=== PATIENT | female | born 1940 | race Caucasian/White ===

== ENCOUNTER → 2016-07-08 | Outpatient (CLI) | payer MEDICARE ==
[2016-07-08 11:42] LABS: Basophils # (A) 0.1 k/uL (0-0.2); Basophils % (A) 1 %; CH 31.1; CHCM 32.4; Eosinophils # (A) 0.2 k/uL (0-0.7); Eosinophils % (A) 2 %; HCT 44.5 % (34.0-46.0); HDW 2.41; HGB 14.3 gm/dL (11.4-16.0); Luc # (Auto) 0.12; Luc % (Auto) 2; Lymphocytes # (A) 1.7 k/uL (1.0-4.8); Lymphocytes % (A) 23 %; MCHC 32.1 g/dL (31.0-37.0); MCV 96.6 fL (80.0-100.0); Mean Platelet Volume 6.7; Monocytes # (A) 0.3 k/uL (0-1.0); Monocytes % (A) 4 %; Neutrophils # (A) 5.1 k/uL (1.3-7.7); Neutrophils % (A) 68 %; RBC 4.61 m/uL (3.80-5.40); RDW 13.5 % (11.5-15.5); WBC 7.4 k/uL (3.8-10.6); WBC (Perox) 7.64
[2016-07-08 11:51] LABS: Appearance,Urine Clear (Clear); Bilirubin,Urine Negative (Negative); Glucose,Urine (UA) Negative (Negative); Ketones,Urine Negative (Negative); Leukocyte Esterase,Urine Trace (Negative); Nitrite,Urine Negative (Negative); PH, Urine 6.5 (5.0-8.0); Particle Count 793; Protein,Urine Negative (Negative); Specific Gravity,Urine 1.001 (1.001-1.035); UA Billing (MACRO vs. MICRO) MICRO; Urobilinogen,Urine <2.0 mg/dL (<2.0); WBC,Urine 1 /hpf (0-5)
[2016-07-08 11:53] LABS: AST 32 U/L (14-36); Alkaline Phosphatase 101 U/L (38-126); Anion Gap 11 mmol/L; Blood Urea Nitrogen 15 mg/dL (7-17); Calcium 9.6 mg/dL (8.4-10.2); Carbon Dioxide 28 mmol/L (22-30); Chloride 102 mmol/L (98-107); Glucose 111 mg/dL (74-99); Non-African American GFR(MDRD) >60 (>60 ml/min/1.73 sqM); Potassium 4.5 mmol/L (3.5-5.1); Sodium 141 mmol/L (137-145); Total Bilirubin 0.5 mg/dL (0.2-1.3); Total Protein 7.4 g/dL (6.3-8.2)
[2016-07-08 11:58] LABS: ALT 50 U/L (9-52)
[2016-07-08 12:00] LABS: Partial Thromboplastin Time 23.3 sec (22.0-30.0); Prothrombin Time 10.3 sec (9.0-12.0)
== END | disposition home or self-care (01) ==
LOC: LABPAT 11:03
PROVIDERS: ATTEND Orthopaedic Surgery
DX: Z01.810 Encounter for preprocedural cardiovascular examination (principal)
CPT/HCPCS: 80053; 81001; 85025; 85610; 85730

== ENCOUNTER → 2016-07-19 | Outpatient (CLI) | payer BC, MEDICARE | END | disposition home or self-care (01) | LOC: LABWHC1 11:01 | PROVIDERS: ATTEND Orthopaedic Surgery | DX: Z01.812 Encounter for preprocedural laboratory examination (principal) | CPT/HCPCS: 87070 ==

== ENCOUNTER 2016-07-23 07:42 | Inpatient (IN) | payer MEDICARE, OTHER ==
[2016-07-18 08:54] VITALS: BMI 25.4
[~2016-07-23 07:42] MED LIST: ACETAMINOPHEN TAB 500 MG TAB PO ONE; DEXAMETHASONE SOD PHOSPHATE 10 MG/ML 1 ML VIAL IV ONE; FAMOTIDINE 20 MG/2 ML VIAL IV PRN; HYDROmorphone 1 MG/ML 1 ML SYRINGE IVP PRN; LACTATED RINGERS 1,000 ML IV SCH; LIDOCAINE 1% 20 ML VIAL (10MG/ML) FOR IV START INTRADERMA PRN; MELOXICAM 7.5 MG TAB PO ONE; MIDAZOLAM 2 MG/2 ML VIAL IV PRN; ONDANSETRON 4 MG/2 ML VIAL IVP ONE; TRANEXAMIC ACID 1,000 MG in SODIUM CHLORIDE 0.9% 100 ML IVPB ONE; ceFAZolin 2 GM in SODIUM CHLORIDE 0.9% 100 ML IVPB ONE
[2016-07-23] MEDS ORDERED: ROPIVACAINE 1,100 MG, SODIUM CHLORIDE 0.9% 330 ML MISCELLANE PRN ×2 (09:00)
--- NOTE | 2016-07-23 09:02 | P.ONQ ---
Anesthesiology Proc Note - PNB - Peripheral Nerve Block Performed Right Adductor Canal Infusion Time Out Performed: Yes Indication: Acute Post-Operative Pain, Analgesia Specifically requested for management of pain by DrJazmine: Babatunde Vasques Sedation Type: Sedate with meaningful contact maintained Preparation: Sterile Prep Position: Supine Catheter Depth at Skin (cm): 8 Catheter: Indwelling Needle Types: On-Q Needle Size: 100mm (4") Needle Gauge: 20 Technique: Ultrasound Injectate: 0.5% Ropivacaine (see comment for volume) (20) Blood Aspirated: No Pain Paresthesia on Injection Noted: No Resistance on Injection: Normal Events: Uneventful and Well Tolerated
[2016-07-23] MEDS ORDERED: ROPIVACAINE 246.25 MG, EPINEPHrine 0.5 MG, KETOROLAC 30 MG, cloNIDine HCL/PF 80 MCG, WA... MISCELLANE ONE ×5 (09:05)
[2016-07-23] MEDS ORDERED: BISACODYL 10 MG SUPP RECTAL PRN (09:40)
[2016-07-23] MEDS ORDERED: NALOXONE 0.4 MG/ML 1 ML VIAL IV PRN (09:40)
[2016-07-23] MEDS ORDERED: HYDROcodone/APAP 5-325MG 1 EACH TAB PO PRN (09:40)
[2016-07-23] MEDS ORDERED: ONDANSETRON 4 MG/2 ML VIAL IVP PRN (09:40)
[2016-07-23] MEDS ORDERED: MAGNESIUM HYDROXIDE 2,400 MG/10 ML CUP PO PRN (09:40)
[2016-07-23] MEDS ORDERED: hydrOXYzine PAMOATE 25 MG CAP PO PRN (09:40)
[2016-07-23] MEDS ORDERED: DIAZEPAM 5 MG TAB PO PRN ×2 (09:40)
[2016-07-23] MEDS ORDERED: HYDROmorphone 1 MG/ML 1 ML SYRINGE IVP PRN ×3 (09:40)
[2016-07-23] MEDS ORDERED: SODIUM CHLORIDE 0.9% 100 ML BAG ONE (09:44)
[2016-07-23] MEDS ORDERED: TRANEXAMIC ACID 1,000 MG/10 ML VIAL ONE (09:44)
[2016-07-23] MEDS ORDERED: MIDAZOLAM 2 MG/2 ML VIAL ONE (09:44)
[2016-07-23] MEDS ORDERED: fentaNYL (PF) 50 MCG/ML 2 ML AMP ONE (09:44)
[2016-07-23] MEDS ORDERED: ceFAZolin 3,000 MG in SODIUM CHLORIDE 0.9% IRRIGATIO 3,000 ML IRRIGATION ONE (10:18)
[2016-07-23] MEDS ORDERED: LACTATED RINGERS 1,000 ML IV ONE (10:35)
--- NOTE | 2016-07-23 11:33 | P.OP ---
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 The articulation is ceramic on polyethylene. Anesthesia: spinal Surgeon: Babatunde Vasques Apparel Stock Checker #1: Sindhu Steinberg Estimated Blood Loss (ml): 50 Pathology: other (Bone and cartilage) Condition: stable Disposition: PACU Indications for Procedure: This is a 75-year-old female with a history of a unicompartmental knee replacement performed 15-20 years ago on her right knee. It is functioning well , although recently she began having more pain and instability in her right knee. After failure of conservative treatment we discussed the surgical and nonsurgical treatment options at length. Patient wishes to proceed with a revision total knee arthroplasty. Complications specific to this procedure were discussed at length, including but not limited to infection, bleeding, stiffness, and nerve injury. Patient is aware of all these complications and informed consent was obtained Operative Findings: The operative findings are consistent with a failed unicompartmental knee replacement of the right knee Description of Procedure: Patient was seen in the preoperative area consent was reviewed and operative site was marked with a skin marker. An adductor canal pain catheter was placed by anesthesia in the preoperative area. Patient was then brought to the operating room and given preoperative antibiotics intravenously. A spinal anesthetic was administered by the anesthesia department. A [place] catheter was then placed by the nursing staff. A tourniquet was placed on the upper thigh and the lower extremity was prepped and draped in usual sterile fashion. A gram of transexamic acid was given. A universal timeout was then performed which confirmed the patient's name, surgical site, ALLERGIES, and consent. The lower extremity was then exsanguinated and tourniquet was inflated to 250 mmHg. A standard and anterior midline approach to the knee was performed, with the prior scar being excised.. The skin and subcutaneous tissue was dissected down to the patellar tendon. A medial parapatellar arthrotomy was then performed. The knee was then extended, the patellar was everted, and the knee was again flexed. Anterior horn of the lateral meniscus was excised, and a release was performed to the posterior medial aspect of the knee. On gross visual inspection, there was significant polyethylene wear as well as significant cartilage damage in the lateral and patellofemoral compartments. There were multiple periarticular osteophytes which were then removed with a Ronguer. The femoral canal was then opened with the appropriate drill, and the intramedullary femoral cutting guide was then placed and set for 4 of valgus. The distal femoral cutting block was then pinned in place, and the distal femur was then cut around the unicompartmental femoral component. The cutting block was then removed and the remaining femoral component was then removed, with minimal bone loss. Next, the sizing guide was then placed and set for 3 external rotation based off of the epicondylar axis and Whitesides line. After the femur was sized, the appropriate 4-in-1 cutting block was then pinned in place. The anterior condyles were cut without notching. The posterior and chamfer cuts were performed while protecting the collateral ligaments. The cutting block was then removed. The femoral trial was then placed, and the adapter for the box cut was placed. The box reamer was utilized, followed by the box osteotome. Any remaining bone was then removed, and the femoral canal was plugged with autologous bone. Attention was then directed to the tibia. The remaining ACL was removed with a Ronguer, and the tibia was then gently subluxed forward with a large bent knee retractor. Any remaining menisci was excised. The posterior lateral corner was cauterized in order to cauterize the lateral geniculate artery. The extra medullary tibial cutting guide was then placed, set for the appropriate rotation , slope, and depth of resection. The proximal tibia cutting guide was then pinned in place. Proximal tibia was then cut and the tibial component was removed. The tibia was then sized. Next trials were then placed with the appropriate-sized insert. The knee was able to fully extend and flex to 130 and was stable throughout all range of motion. The knee was then extended, patella everted. Patella was then measured, and then using an osteotomy guide, the patella was cut at the appropriate level. The patella was then measured and drilled and the patella trial was then placed. The knee was then taken through range of motion with the patella trial and the patella tracked normally. The knee was then extended patella trial was then removed and the patella was everted. Knee was then flexed and lug holes were drilled through the femoral trial and the femoral trial was then removed. The tibial was then exposed, and the tibial broach guide was then pinned in place after it was set for the appropriate rotation to allow for the most coverage without overhang. The tibia was then reamed and broached. The cut surfaces of bone were then irrigated with pulsatile lavage. The posterior structures were injected with the ropivacaine solution. The knee was also irrigated with Irrisept solution. The components were then opened, the cement was mixed, and the components were then cemented in place. The cement was allowed to harden with the knee in full extension. While the cement was hardening, the remaining soft tissues were then injected with a ropivacaine solution, which consisted of 246.25 mg of ropivacaine, 0.5 mg of epinephrine, 30 mg of Toradol, 80 g of clonidine, and 48.45 mL of sterile water, for a total of 100 mL of fluid injected. After the cemented hardened. The tourniquet was released, and hemostasis was obtained. A second gram of transexamic acid was given. The knee was again irrigated. The knee was again taken through range of motion and found to be stable throughout all range of motion of 0-130 , and the patella tracked normally. The fascia was then closed with #2 strata fix suture. The subcutaneous tissue was closed with 3-0 Vicryl and 3-0 strata fix. Dermabond tape was used for the skin and placed with the knee in flexion. The patient was placed in a sterile dressing. Patient was then transferred to recovery room in stable condition. The psych assistant SERGIO Feliciano was required due the complexity surgery and the need for a skilled assistant professor of business. She assisted in positioning, draping , retraction, and closure of the wound.
--- NOTE | 2016-07-23 12:55 | XR ---
EXAMINATION TYPE: XR knee limited RT DATE OF EXAM: 07/23/2016 12:44 PM COMPARISON: NONE HISTORY: Post evaluation right knee prosthesis TECHNIQUE: 2 views right knee FINDINGS: Tibial and femoral components are placed. Soft tissue postsurgical changes are evident. No acute fractures are evident. IMPRESSION: 1. No acute fracture post right knee replacement
[2016-07-23] MEDS: SODIUM CHLORIDE 0.9% 1,000 ML IV SCH ×3 (13:00→13:16)
[2016-07-23] MEDS ORDERED: PANTOPRAZOLE 40 MG TABLET PO PRN (13:53)
[2016-07-23] MEDS ORDERED: FLUTICASONE 50MCG/SPRAY NASAL 16GM EA NOSTRIL PRN (13:53)
--- NOTE | 2016-07-23 16:58 | P.CONS ---
History of Present Illness - Reason for Consult Consult date: 07/23/16 Medical management Requesting physician: Babatunde Vasques - Chief Complaint Right knee osteoarthritis - History of Present Illness This is a 75-year-old female with past medical history noted below significant for severe osteoarthritis of the right knee that was admitted to the hospital for elective total right knee arthrosis plasty. Patient is postoperative day # 0. She tolerated the procedure well. No complications reported. I was asked to see her for medical management. Review of Systems Review of system: 14 points review of systems were obtained and were negative except to what were mentioned in the HPI. Past Medical History Past Medical History: Hyperlipidemia Additional Past Medical History / Comment(s): heart murmur, TIA about 15 yrs, History of Any Multi-Drug Resistant Organisms: None Reported Past Surgical History: Appendectomy, Orthopedic Surgery, Tonsillectomy Additional Past Surgical History / Comment(s): bilateral carpal tunnel release, knee, cataracts Past Anesthesia/Blood Transfusion Reactions: No Reported Reaction Past Psychological History: No Psychological Hx Reported Smoking Status: Never smoker Past Alcohol Use History: None Reported Past Drug Use History: None Reported - Past Family History Father Family Medical History: Myocardial Infarction ([place]) Medications and Allergies Home Medications Medication Instructions Recorded Confirmed Type Cholecalciferol [Vitamin D3] 1,000 unit PO DAILY 05/15/15 07/23/16 History Clopidogrel [Plavix] 75 mg PO DAILY 05/15/15 07/23/16 History FLUoxetine HCL [PROzac] 40 mg PO BID 05/15/15 07/23/16 History Fluticasone Nasal [place] [Flonase 2 spr EA NOSTRIL DAILY PRN 05/15/15 07/23/16 History Nasal [place]] Pantoprazole Sodium 40 mg PO BID PRN 05/15/15 07/23/16 History Atorvastatin [Lipitor] 40 mg PO HS 07/18/16 07/23/16 History Allergies Allergy/AdvReac Type Severity Reaction Status Date / Time Milk Containing Products Allergy Severe Diarrhea Verified 07/23/16 08:09 [Dairy] adhesive Allergy Unknown Red Verified 07/23/16 08:09 irritated skin banana Allergy Unknown Diarrhea Verified 07/23/16 08:09 Beef Containing Products Allergy Unknown Diarrhea Verified 07/23/16 08:09 [Beef] Physical Exam Vitals: Vital Signs Temp Pulse Resp BP Pulse Ox 07/23/16 15:15 94 107/71 07/23/16 15:00 92 117/70 07/23/16 14:45 96 115/65 07/23/16 14:30 97 126/78 07/23/16 14:15 93 123/97 07/23/16 14:00 75 129/76 07/23/16 13:45 81 120/67 07/23/16 13:30 97.7 F 81 16 121/69 100 07/23/16 12:50 79 18 102/55 96 07/23/16 12:35 80 18 100/60 96 07/23/16 12:20 78 18 101/55 96 07/23/16 12:05 76 18 122/56 95 07/23/16 11:50 97.5 F L 90 18 121/57 98 07/23/16 08:07 97.0 F L 83 18 132/85 95 Intake and Output 07/23/16 07/23/16 07/23/16 06:59 14:59 22:59 Intake Total 3026 Output Total 1100 Balance 1926 Intake: IV 3026 Output: Urine 1050 Uretheral ([place]) 500 Estimated Blood Loss 50 Other: Voiding Method Indwelling Catheter Weight 61.235 kg Patient Weight 07/24/16 06:59 Weight 61.235 kg General: The patient is awake and alert, in no distress Eye: there is normal conjunctiva bilaterally. Neck: The neck is supple, there is no JVD. Cardiovascular: Normal S1-S2, no S3-S4, no murmurs. Respiratory: Lungs clear to auscultation bilaterally Gastrointestinal: Abdomen is soft, nontender Musculoskeletal: There is no pedal edema. Neurological:. Speech is normal. Skin: Skin is warm and dry Assessment and Plan Plan: 1. Postoperative day #0 status post total right knee arthroplasty 2. DVT prophylaxis I will order subcu heparin 3. Mixed hyperlipidemia maintained on Lipitor 4. Major depressive disorder Today, I reviewed her medication list and lab work results. Continue current regimen. Thank you very much for the consultation. I will continue to follow up on the patient closely.
[2016-07-23] MEDS: ceFAZolin 2 GM in SODIUM CHLORIDE 0.9% 100 ML IVPB SCH (18:35)
[2016-07-23] MEDS: SENNOSIDES-DOCUSATE SODIUM 1 EACH TAB PO SCH (20:25)
[2016-07-23] MEDS: ATORVASTATIN 40 MG TAB PO SCH (20:25)
[2016-07-23] MEDS: FLUoxetine HCL 20 MG CAP PO SCH (20:25)
[2016-07-23] MEDS: HEPARIN SODIUM,PORCINE 5,000 UNIT/ML 1 ML VIAL SQ SCH (21:22)
[2016-07-24] MEDS: ceFAZolin 2 GM in SODIUM CHLORIDE 0.9% 100 ML IVPB SCH (00:49)
[2016-07-24 07:40] LABS: ALT 28 U/L (9-52); AST 25 U/L (14-36); Alkaline Phosphatase 73 U/L (38-126); Anion Gap 7 mmol/L; Blood Urea Nitrogen 18 mg/dL (7-17); Calcium 8.4 mg/dL (8.4-10.2); Carbon Dioxide 27 mmol/L (22-30); Chloride 104 mmol/L (98-107); Glucose 84 mg/dL (74-99); Non-African American GFR(MDRD) >60 (>60 ml/min/1.73 sqM); Potassium 3.5 mmol/L (3.5-5.1); Sodium 138 mmol/L (137-145); Total Bilirubin 0.6 mg/dL (0.2-1.3); Total Protein 5.3 g/dL (6.3-8.2)
[2016-07-24 07:41] LABS: Basophils % (A) 0 %; CH 30.8; CHCM 32.5; Eosinophils % (A) 0 %; HCT 32.7 % (34.0-46.0); HDW 2.39; Luc # (Auto) 0.14; Luc % (Auto) 1; Lymphocytes # (A) 1.5 k/uL (1.0-4.8); Lymphocytes % (A) 14 %; MCH 31.1 pg (25.0-35.0); MCHC 32.6 g/dL (31.0-37.0); MCV 95.3 fL (80.0-100.0); Mean Platelet Volume 8.1; Monocytes # (A) 0.7 k/uL (0-1.0); Monocytes % (A) 6 %; Neutrophils # (A) 8.3 k/uL (1.3-7.7); Neutrophils % (A) 78 %; RBC 3.43 m/uL (3.80-5.40); RDW 13.5 % (11.5-15.5); WBC 10.7 k/uL (3.8-10.6); WBC (Perox) 10.56
[2016-07-24 07:45] LABS: HGB 10.7 gm/dL (11.4-16.0)
--- NOTE | 2016-07-24 08:25 | P.PN ---
Subjective Principal diagnosis: Status post revision right total knee arthroplasty This is a pleasant 75-year-old female who is status post right total knee revision. Today is postoperative day #1. The patient is seen at bedside with Dr. Babautnde Vasques. Her pain is well-controlled. She has been up with physical therapy. She has no new complaints at this time. Objective - Vital Signs Vital signs: Vital Signs Temp 97.1 F L 07/24/16 07:00 Pulse 76 07/24/16 07:00 Resp 16 07/24/16 07:00 BP 112/60 07/24/16 07:00 Pulse Ox 96 07/24/16 07:00 Intake & Output 07/23/16 07/24/16 07/24/16 18:59 06:59 18:59 Intake Total 3446 540 Output Total 1100 1000 Balance 2346 -460 Weight 61.235 kg Intake: IV 3086 540 Sodium Chloride 0.9% 1, 60 540 000 ml @ 60 mls/hr IV . [id number] JACOBO Rx#:[id number] Oral 360 Output: Urine 1050 1000 Uretheral ([place]) 500 1000 Estimated Blood Loss 50 Other: Voiding Method Indwelling Catheter Indwelling Catheter - Exam The patient does not appear in acute distress. Alert and orientated 3. Dressing is clean dry and intact. Incision appears fine with no erythema or active drainage. Calf is soft and nontender. Good foot and ankle motion without difficulty. Sensation and circulatory status is intact. - Labs CBC & Chem 7: 07/24/16 06:49 07/24/16 06:49 Labs: Abnormal Lab Results - Last 24 Hours (Table) 07/24/16 07/24/16 Range/Units 06:49 06:49 WBC 10.7 H (3.8-10.6) k/uL RBC 3.43 L (3.80-5.40) m/uL Hgb 10.7 L D (11.4-16.0) gm/dL Hct 32.7 L (34.0-46.0) % Neutrophils # 8.3 H (1.3-7.7) k/uL BUN 18 H (7-17) mg/dL Total Protein 5.3 L (6.3-8.2) g/dL Albumin 3.0 L (3.5-5.0) g/dL Assessment and Plan (1) Status post revision of total replacement of right knee Status: Acute Plan: 1. Continue with routine postoperative care. 2. Anticoagulation as directed by medicine as the patient was on Plavix preoperatively 3. Physical therapy and CPM today. 4. Appreciate input from medicine. 5. Anticipate discharge to home with home care likely tomorrow.
--- NOTE | 2016-07-24 09:20 | P.PN ---
Progress Note - Text The patient is status post right adductor canal catheter placement. The catheter was placed for postoperative pain control, status post total right arthroplasty. Ropivacaine 0.2% is infusing at 8 mLs per hour. The patient has no complaints of right lower extremity numbness or weakness. Patient's VAS score is 3 -10. Assessment: Patient's adductor canal catheter is in place and working appropriately. Plan: continue infusion and adjust it as needed.
[2016-07-24] MEDS: CHOLECALCIFEROL 1,000 UNIT TAB PO SCH (09:32)
[2016-07-24] MEDS: FLUoxetine HCL 20 MG CAP PO SCH ×2 (09:32→20:10)
[2016-07-24] MEDS: CLOPIDOGREL 75 MG TAB PO SCH (09:32)
[2016-07-24] MEDS: HEPARIN SODIUM,PORCINE 5,000 UNIT/ML 1 ML VIAL SQ SCH (09:33)
[2016-07-24] MEDS: MELOXICAM 7.5 MG TAB PO SCH (09:34)
[2016-07-24] MEDS: HYDROcodone/APAP 5-325MG 1 EACH TAB PO PRN ×3 (13:33→23:58)
[2016-07-24] MEDS: RIVAROXABAN 10 MG TAB PO SCH (16:24)
--- NOTE | 2016-07-24 16:45 | P.PN ---
Subjective Patient is doing well today. She is more alert. Her pain is well controlled. Objective - Vital Signs Vital signs: Vital Signs Temp 99.3 F 07/24/16 15:00 Pulse 84 07/24/16 15:00 Resp 16 07/24/16 15:00 BP 103/63 07/24/16 15:00 Pulse Ox 94 L 07/24/16 15:00 Intake & Output 07/23/16 07/24/16 07/24/16 18:59 06:59 18:59 Intake Total 3446 540 720 Output Total 1100 1000 1400 Balance 2346 -460 -680 Weight 61.235 kg Intake: IV 3086 540 Sodium Chloride 0.9% 1, 60 540 000 ml @ 60 mls/hr IV . [id number] JACOBO Rx#:[id number] Oral 360 720 Output: Urine 1050 1000 1400 Uretheral ([place]) 500 1000 1100 Estimated Blood Loss 50 Other: Voiding Method Indwelling Catheter Indwelling Catheter Toilet # Bowel Movements 1 - Exam General: The patient is awake and alert, in no distress Eye: there is normal conjunctiva bilaterally. Neck: The neck is supple, there is no JVD. Cardiovascular: Normal S1-S2, no S3-S4, no murmurs. Respiratory: Lungs clear to auscultation bilaterally Gastrointestinal: Abdomen is soft, nontender Musculoskeletal: There is no pedal edema. Neurological:. Speech is normal. Skin: Skin is warm and dry - Labs CBC & Chem 7: 07/24/16 06:49 07/24/16 06:49 Labs: Abnormal Lab Results - Last 24 Hours (Table) 07/24/16 07/24/16 Range/Units 06:49 06:49 WBC 10.7 H (3.8-10.6) k/uL RBC 3.43 L (3.80-5.40) m/uL Hgb 10.7 L D (11.4-16.0) gm/dL Hct 32.7 L (34.0-46.0) % Neutrophils # 8.3 H (1.3-7.7) k/uL BUN 18 H (7-17) mg/dL Total Protein 5.3 L (6.3-8.2) g/dL Albumin 3.0 L (3.5-5.0) g/dL Assessment and Plan Plan: 1. Postoperative day #1 status post total right knee arthroplasty 2. DVT prophylaxis: I recommend to use Rivaroxaban 10 mg daily for 12 days postoperatively 3. Mixed hyperlipidemia maintained on Lipitor 4. Major depressive disorder 5. History of TIAs in the past maintained on Plavix daily Today, I reviewed her medication list and lab work results. Continue current regimen. Thank you very much for the consultation. I will continue to follow up on the patient closely.
[2016-07-24] MEDS: SODIUM CHLORIDE 0.9% 1,000 ML IV SCH (19:15)
[2016-07-24] MEDS: ATORVASTATIN 40 MG TAB PO SCH (20:10)
[2016-07-24] MEDS: SENNOSIDES-DOCUSATE SODIUM 1 EACH TAB PO SCH (20:11)
[2016-07-25] MEDS: HYDROcodone/APAP 5-325MG 1 EACH TAB PO PRN ×2 (05:51→11:50)
[2016-07-25 07:09] LABS: ALT 25 U/L (9-52); AST 21 U/L (14-36); Alkaline Phosphatase 71 U/L (38-126); Anion Gap 8 mmol/L; Blood Urea Nitrogen 14 mg/dL (7-17); Calcium 8.5 mg/dL (8.4-10.2); Carbon Dioxide 27 mmol/L (22-30); Chloride 102 mmol/L (98-107); Glucose 96 mg/dL (74-99); Non-African American GFR(MDRD) >60 (>60 ml/min/1.73 sqM); Potassium 3.7 mmol/L (3.5-5.1); Sodium 137 mmol/L (137-145); Total Bilirubin 0.8 mg/dL (0.2-1.3); Total Protein 5.3 g/dL (6.3-8.2)
--- NOTE | 2016-07-25 08:22 | P.DS ---
Providers Date of admission: 07/23/16 07:42 Expected date of discharge: 07/25/16 Attending physician: Babatunde Vasques Consults: 07/23/16 09:40 Consult Physician Routine Consulting Provider: Olya Curiel Consult Reason/Comments: medical management Do you want consulting provider notified?: Yes Primary care physician: Abeba Mon - Discharge Diagnosis(es) (1) Osteoarthritis of right knee Current Visit: Yes Status: Acute (2) Status post revision of total replacement of right knee Current Visit: Yes Status: Acute Hospital Course: This is a pleasant 75-year-old female last seen in our office with complaints of right knee pain. Patient has known history of a partial knee replacement 20 years ago. After discussion and consideration, patient elected to proceed with a revision total knee arthroplasty of the right knee. The patient was seen preoperatively and medically cleared for surgery by Dr. Mon. The patient was admitted to [facility] and underwent right revision total knee arthroplasty on 07/23/[address] Babatunde Vasques. The procedure was performed without complications or sequelae. The patient has done well postoperatively. The patient was seen and evaluated at bedside today and denies any new complaints. Pain is reasonably controlled. Dressing is clean dry and intact. Incision looks fine with no erythema or active drainage. Calf is soft and nontender. The patient has full foot and ankle motion without difficulty. Patient's right lower extremity is neurovascular intact. Patient is orthopedically stable for discharge to home today. Pertinent Studies: Laboratory Tests 07/24/16 06:49 WBC 10.7 H RBC 3.43 L Hgb 10.7 L D Hct 32.7 L Patient Condition at Discharge: Stable Plan - Discharge Summary New Discharge Prescriptions: Hydrocodone/Acetaminophen [[place] 5-325] 1 - 2 each PO Q6HR PRN #90 tab PRN Reason: Pain Sennosides-Docusate Sodium [Senokot-S] 2 tab PO DAILY #60 tablet Discharge Medication List Cholecalciferol [Vitamin D3] 1,000 unit PO DAILY 05/15/15 [History] Clopidogrel [Plavix] 75 mg PO DAILY 05/15/15 [History] FLUoxetine HCL [PROzac] 40 mg PO BID 05/15/15 [History] Fluticasone Nasal [place] [Flonase Nasal [place]] 2 spr EA NOSTRIL DAILY PRN [History] Pantoprazole Sodium 40 mg PO BID PRN 05/15/15 [History] Atorvastatin [Lipitor] 40 mg PO HS 07/18/16 [History] Hydrocodone/Acetaminophen [[place] 5-325] 1 - 2 each PO Q6HR PRN #90 tab 07/24/16 [Rx] Sennosides-Docusate Sodium [Senokot-S] 2 tab PO DAILY #60 tablet 07/24/16 [Rx] Follow up Appointment(s)/Referral(s): Babatunde Vasques DO [Doctor of Osteopathic Medicine] - 2 Weeks Ambulatory/Diagnostic Orders: Continuous Passive Motion (CPM) Machine [DME.AMB1] Location: Determined By Patient Activity/Diet/Wound Care/Special Instructions: Home Care - [facility] - [phone] Equipment - Walker/CPM - [facility] - [phone] - walker will be delivered to room prior to discharge; Call [facility] when you get home for delivery of CPM Pick script for Xarelto up from [facility] at time of discharge Weightbearing as tolerated with a walker CPM daily Daily dressing changes, keep incision clean and dry Anticoagulation per medicine [facility] with questions or concerns [phone] Discharge Disposition: HOME WITH HOME HEALTH SERVICES
[2016-07-25] MEDS: CHOLECALCIFEROL 1,000 UNIT TAB PO SCH (09:23)
[2016-07-25] MEDS: MELOXICAM 7.5 MG TAB PO SCH (09:23)
[2016-07-25] MEDS: CLOPIDOGREL 75 MG TAB PO SCH (09:23)
[2016-07-25] MEDS: RIVAROXABAN 10 MG TAB PO SCH (09:23)
[2016-07-25] MEDS: FLUoxetine HCL 20 MG CAP PO SCH (09:23)
[2016-07-25 10:01] VITALS: BP 110/56; PULSE 77; RESP 14; TEMP 98.9
--- NOTE | 2016-07-25 11:02 | P.PN ---
Progress Note - Text 0717. Anesthesia POD2. Patient is status post right TKR under spinal anesthesia with a right adductor canal catheter placed for postoperative pain relief. 0.2% ropivacaine continues to infuse at 8 mL per hour and patient's VAS is 4, 7. Catheter function seems to be appropriate dressing is intact and dry.
[2016-07-25] MEDS: SODIUM CHLORIDE 0.9% 1,000 ML IV SCH (11:48)
--- NOTE | 2016-07-25 12:35 | P.PN ---
Subjective Patient is looking forward to go home today Objective - Vital Signs Vital signs: Vital Signs Temp 98.9 F 07/25/16 07:00 Pulse 77 07/25/16 08:00 Resp 14 07/25/16 08:00 BP 110/56 07/25/16 07:00 Pulse Ox 92 L 07/25/16 07:00 Intake & Output 07/24/16 07/25/16 07/25/16 18:59 06:59 18:59 Intake Total 960 100 240 Output Total 1400 300 Balance -440 100 -60 Weight 61.235 kg Intake: Oral 960 100 240 Output: Urine 1400 300 Uretheral ([place]) 1100 Other: Voiding Method Toilet Toilet Toilet # Voids 2 2 # Bowel Movements 1 1 - Exam General: The patient is awake and alert, in no distress Eye: there is normal conjunctiva bilaterally. Neck: The neck is supple, there is no JVD. Cardiovascular: Normal S1-S2, no S3-S4, no murmurs. Respiratory: Lungs clear to auscultation bilaterally Gastrointestinal: Abdomen is soft, nontender Musculoskeletal: There is no pedal edema. Neurological:. Speech is normal. Skin: Skin is warm and dry - Labs CBC & Chem 7: 07/24/16 06:49 07/25/16 06:21 Labs: Abnormal Lab Results - Last 24 Hours (Table) 07/25/16 Range/Units 06:21 Total Protein 5.3 L (6.3-8.2) g/dL Albumin 3.0 L (3.5-5.0) g/dL Assessment and Plan Plan: 1. Postoperative day #2 status post total right knee arthroplasty 2. DVT prophylaxis: I recommend to use Rivaroxaban 10 mg daily for 12 days postoperatively 3. Mixed hyperlipidemia maintained on Lipitor 4. Major depressive disorder 5. History of TIAs in the past maintained on Plavix daily Patient is medically cleared to be discharged home. Please refer to the medication reconciliation form for her medication list.
== END 2016-07-25 13:15 | disposition home health service (06) | DRG 468 ==
LOC: 2ORMAIN 07:42 → 3SUR 11:46
PROVIDERS: ADMIT Orthopaedic Surgery; ATTEND Orthopaedic Surgery
PROC: 0SUC09C Supplement Right Knee Joint with Liner, Patellar Surface, Open Approach (ICD-10-PCS; principal; 2016-07-23 09:40)
PROC: 0SPC0JZ Removal of Synthetic Substitute from Right Knee Joint, Open Approach (ICD-10-PCS; principal; 2016-07-23 09:40)
PROC: 0SPC09Z Removal of Liner from Right Knee Joint, Open Approach (ICD-10-PCS; principal; 2016-07-23 09:40)
PROC: 0SRC0J9 Replacement of Right Knee Joint with Synthetic Substitute, Cemented, Open Approach (ICD-10-PCS; principal; 2016-07-23 09:40)
DX: T84.89XA Other specified complication of internal orthopedic prosthetic devices, implants and grafts, initial encounter (principal); F32.9 Major depressive disorder, single episode, unspecified; Y79.2 Prosthetic and other implants, materials and accessory orthopedic devices associated with adverse incidents; M17.11 Unilateral primary osteoarthritis, right knee; Z79.899 Other long term (current) drug therapy; Z91.040 Latex allergy status; Z86.73 Personal history of transient ischemic attack (TIA), and cerebral infarction without residual deficits; Z79.02 Long term (current) use of antithrombotics/antiplatelets; Z82.49 Family history of ischemic heart disease and other diseases of the circulatory system; E78.2 Mixed hyperlipidemia
CPT/HCPCS: 80053; 85025; 88300

== ENCOUNTER → 2016-09-24 | Outpatient (CLI) | payer MEDICARE, OTHER ==
--- NOTE | 2016-09-24 14:29 | MM ---
Reason for exam: additional evaluation requested from prior study. Last mammogram was performed 6 months ago. History: Patient is postmenopausal. Excisional biopsy of the left breast, 1996. Physical Findings: Nurse did not find any significant physical abnormalities on exam. MG 3D Diag Mammo W/Cad LT CC and MLO view(s) were taken of the left breast. Prior study comparison: March 19, 2016, left breast US breast limited LT. March 19, 2016, left breast MG 3d work up w/cad LT. March 11, 2016, bilateral MG 3d screening mammo w/cad. October 27, 2013, bilateral MG screening mammo w CAD. February 26, 2012, bilateral digital screening mammo w/CAD. The breast tissue is heterogeneously dense. This may lower the sensitivity of mammography. No significant new findings when compared with previous films. These results were verbally communicated with the patient and result sheet given to the patient on 09/24/16. ASSESSMENT: Incomplete: need additional imaging evaluation, BI-RAD 0 RECOMMENDATION: Ultrasound of the left breast. (12:00 as a 6 month follow up)
--- NOTE | 2016-09-24 14:32 | USB ---
Reason for exam: additional evaluation requested from abnormal screening. History: Patient is postmenopausal. US Breast Limited LT Left breast ultrasound indicates a 0.3 x 0.23 x 0.10 cm too small to characterize lesion at 12 o'clock, smaller, compatible with a benign etiology, a 0.6 x 0.5 x 0.3 cm mixed lesion at 1 o'clock, possible lymph node for which a 6 month follow up is recommended, and a 0.3 x 0.2 x 0.4 cm too small to characterize lesion at axilla tail for which a 6 month follow up is recommended. These results were verbally communicated with the patient and result sheet given to the patient on 09/24/16. ASSESSMENT: Probably benign, BI-RAD 3 RECOMMENDATION: Follow-up diagnostic mammogram of both breasts in 6 months. (for annual exam) Ultrasound of the left breast in 6 months. (upper outer quadrant)
== END | disposition home or self-care (01) ==
LOC: RADMAMWWP 10:38
PROVIDERS: ATTEND Family Medicine
DX: R92.2 Inconclusive mammogram (principal)
CPT/HCPCS: 76642; G0206; G0279

== ENCOUNTER → 2017-04-09 | Outpatient (CLI) | payer MEDICARE, OTHER ==
--- NOTE | 2017-04-09 10:43 | MM ---
Reason for exam: follow-up at short interval from prior study. Last mammogram was performed 6 months ago. History: Patient is postmenopausal. Excisional biopsy of the left breast, 1996. Physical Findings: Nurse Summary: 0.5 x 1cm nodule in the right breast at 8 o'clock (nurse ts). MG 3D Diag Mammo W/Cad CHELSIE Bilateral CC and MLO view(s) were taken. Prior study comparison: September 24, 2016, left breast MG 3d diag mammo w/cad LT. March 19, 2016, left breast MG 3d work up w/cad LT. The breast tissue is heterogeneously dense. This may lower the sensitivity of mammography. Finding: There are typically benign calcifications in both breasts. No suspicious abnormality. No significant changes in finding since September 24, 2016 and March 19, 2016. These results were verbally communicated with the patient and result sheet given to the patient on 04/09/17. ASSESSMENT: Benign, BI-RAD 2 RECOMMENDATION: Routine screening mammogram of both breasts in 1 year.
--- NOTE | 2017-04-09 10:45 | USB ---
Reason for exam: follow-up at short interval from prior study. History: Patient is postmenopausal. Excisional biopsy of the left breast, 1996. US Breast Limited BILAT Left breast ultrasound includes all four quadrants, the retroareolar region and axilla. Finding demonstrates a 0.4 x 0.2 x 0.3cm oval, hypoechoic lesion at 12 o'clock. Right breast ultrasound demonstrates a 0.2 x 0.2 x 0.3cm oval, hypoechoic lesion at 8 o'clock, questionable calcifications nearby, appears cystic. These results were verbally communicated with the patient and result sheet given to the patient on 04/09/17. ASSESSMENT: Probably benign, BI-RAD 3 RECOMMENDATION: Ultrasound of the left breast in 6 months.
== END | disposition home or self-care (01) ==
LOC: RADMAMWWP 08:38
PROVIDERS: ATTEND Family Medicine
DX: R92.8 Other abnormal and inconclusive findings on diagnostic imaging of breast (principal)
CPT/HCPCS: 76642; G0204; G0279

== ENCOUNTER → 2017-10-14 | Outpatient (CLI) | payer MEDICARE, OTHER ==
--- NOTE | 2017-10-14 10:58 | USB ---
Reason for exam: follow-up at short interval from prior study. History: Patient is postmenopausal. Excisional biopsy of the left breast, 1996. Physical Findings: Nurse Summary: left breast nipple inverted "always" per patient, all soft, nodular, movable bilateral tissue (nurse ts). US Breast LT Left complete breast ultrasound includes all four quadrants, the retroareolar region and axilla. Finding demonstrates a 4 x 2 x 3mm oval, hypoechoic lesion at 12 o'clock, unchanged from previous. These results were verbally communicated with the patient and result sheet given to the patient on 10/14/17. ASSESSMENT: Benign, BI-RAD 2 RECOMMENDATION: Follow-up diagnostic mammogram of both breasts in 6 months. Back on schedule. Ultrasound of the left breast in 6 months.
== END | disposition home or self-care (01) ==
LOC: RADUSWWP 09:27
PROVIDERS: ATTEND Family Medicine
DX: R92.8 Other abnormal and inconclusive findings on diagnostic imaging of breast (principal)

== ENCOUNTER → 2018-04-29 | Outpatient (CLI) | payer MEDICARE, OTHER ==
--- NOTE | 2018-04-29 12:03 | MM ---
Reason for exam: additional evaluation requested from prior study. Last mammogram was performed 1 year and 1 month ago. History: Patient is postmenopausal. Excisional biopsy of the left breast, 1996. Physical Findings: Nurse did not find any significant physical abnormalities on exam. MG 3D Diag Mammo W/Cad CHELSIE Bilateral CC and MLO view(s) were taken. Prior study comparison: April 09, 2017, bilateral MG 3d diag mammo w/cad CHELSIE. September 24, 2016, left breast MG 3d diag mammo w/cad LT. The breast tissue is heterogeneously dense. This may lower the sensitivity of mammography. No significant new findings when compared with previous films. These results were verbally communicated with the patient and result sheet given to the patient on 04/29/18. ASSESSMENT: Benign, BI-RAD 2 RECOMMENDATION: Routine screening mammogram of both breasts in 1 year.
--- NOTE | 2018-04-29 12:04 | USB ---
Reason for exam: additional evaluation requested from prior study. History: Patient is postmenopausal. Excisional biopsy of the left breast, 1996. US Breast LT Left complete breast ultrasound includes all four quadrants, the retroareolar region and axilla. Finding demonstrates a 0.4 x 0.2 x 0.4cm hypoechoic lesion at 12 o'clock, stable duct ectasia. These results were verbally communicated with the patient and result sheet given to the patient on 04/29/18. ASSESSMENT: Benign, BI-RAD 2 RECOMMENDATION: Routine screening mammogram of both breasts in 1 year.
== END | disposition home or self-care (01) ==
LOC: RADMAMWWP 10:46
PROVIDERS: ATTEND Family Medicine
DX: R92.2 Inconclusive mammogram (principal)
CPT/HCPCS: 77066; 76641; G0279; 77062

== ENCOUNTER → 2018-10-15 | Outpatient (CLI) | payer MEDICARE, OTHER ==
--- NOTE | 2018-10-15 16:46 | BD ---
EXAMINATION TYPE: Axial Bone Density DATE OF EXAM: 10/15/2018 COMPARISON: 10.27.2013 CLINICAL HISTORY: 78 YR OLD FEMALE...ICD-10 CODE: M89.9 DISORDER OF BONE Height: 59.3 Weight: 154 FRAX RISK QUESTIONS: History of Fracture in Adulthood: YES RISK FACTORS HISTORY OF: HX OF RT ARM FRACTURE LAST YR AT 77 YRS OLD Diet low in dairy products/other sources of calcium: LACTOSE INTOLERANT Postmenopausal woman: YES AT AGE 54 MEDICATIONS: Additional Medications: PROZAC, STATIN FOR CHOLESTEROL, Additional History: NOTHING ADDITIONAL TO NOTE EXAM MEASUREMENTS: Bone mineral densitometry was performed using the [employer]der[employer] System. Bone mineral density as measured about the Lumbar spine is: ----- L1-L4(G/cm2): 0.946 T Score Values are as follows: ----- L1: -1.7 ----- L2: -2.5 ----- L3: -1.6 ----- L4: -2.0 ----- L1-L4: -2.0 Bone mineral density has: Increased 0.1% since study of: 10.27.2013 Bone mineral density about the R hip (g/cm2): 0.878 Bone mineral density about the L hip (g/cm2): 0.869 T Score values are as follows: -----R Neck: -1.8 -----L Neck: -2.2 -----R Total: - 1.0 -----L Total: -1.1 Bone mineral density has: Decreased -4.7% since study of: 10.27.2013 FRAX%s: THERE IS A 21.3% CHANCE FOR A MAJOR OSTEOPOROTIC FX AND A 5.6 % FOR HIP....PROBABILITY FOR FX IN 10 YRS TIME IMPRESSION: Osteopenia (T Score between -2.5 and -1). There is slightly increased risk of fracture and the patient may be considered for treatment. Re-Screen 2-5 years. NOTE: T-SCORE=SD OF THE YOUNG ADULT MEAN.
== END | disposition home or self-care (01) ==
LOC: RADBDWWP 14:59
PROVIDERS: ATTEND Family Medicine
DX: M85.88 Other specified disorders of bone density and structure, other site (principal); M85.852 Other specified disorders of bone density and structure, left thigh
CPT/HCPCS: 77080

== ENCOUNTER 2019-04-27 08:28 | Day surgery (SDC) | payer MEDICARE, OTHER ==
[2019-04-23 11:29] VITALS: BMI 28.3
[~2019-04-27 08:28] MED LIST changes: -ACETAMINOPHEN TAB 500 MG TAB PO ONE; -FAMOTIDINE 20 MG/2 ML VIAL IV PRN; -HYDROmorphone 1 MG/ML 1 ML SYRINGE IVP PRN; -MELOXICAM 7.5 MG TAB PO ONE; -MIDAZOLAM 2 MG/2 ML VIAL IV PRN; -ONDANSETRON 4 MG/2 ML VIAL IVP ONE; -TRANEXAMIC ACID 1,000 MG in SODIUM CHLORIDE 0.9% 100 ML IVPB ONE; -ceFAZolin 2 GM in SODIUM CHLORIDE 0.9% 100 ML IVPB ONE
[2019-04-27 09:18] VITALS: RESP 16; TEMP 97.5
[2019-04-27] MEDS ORDERED: PROPOFOL 10 MG/ML 20 ML VIAL IV ONE (09:21)
--- NOTE | 2019-04-27 10:13 | P.PCN ---
Date of Procedure: 04/27/19 Description of Procedure: BRIEF HISTORY: Patient is a 78-year-old pleasant female scheduled for an elective colonoscopy, for follow-up of a history of colon polyps. Patient reports last colonoscopy approximately 6 years ago with polyps removed at that time. No change in bowel habits, blood per rectum or abdominal pain. No family history of colon cancer. PROCEDURE PERFORMED: Colonoscopy. PREOPERATIVE DIAGNOSIS: Personal history of colon polyps, last colonoscopy 6 years ago. ESTIMATED BLOOD LOSS: Minimal. IV sedation per Anesthesia. PROCEDURE: After informed consent was obtained, the patient, was brought into the endoscopy unit. IV sedation was administered by Anesthesia under continuous monitoring. Digital rectal examination was normal. Initially the Olympus CF-190 flexible video colonoscope was then inserted in the rectum however due to a somewhat fixed colon this was exchanged for a pediatric scope which was then inserted into the rectum, gradually advanced into the cecum without any difficulty. Careful examination was performed as the scope was gradually being withdrawn. Ileocecal valve and the appendiceal orifice were visualized and appeared normal. Prep was fair with a large amount of liquid stool adherent to the schmitz of the colon which was copiously lavaged and suctioned. Mucosa of the cecum, ascending colon, transverse colon, descending colon, sigmoid colon, and rectum appeared normal. Multiple small mouth diverticula noted in the sigmoid colon. Ret roflexion was performed in the rectum and no lesions were seen. The patient tolerated the procedure well. IMPRESSION: Mild sigmoid diverticulosis. Fair prep (copiously lavaged and suctioned). RECOMMENDATIONS: Findings of this examination were discussed with the patient and her family. Okay to resume diet. Okay to resume anticoagulation therapy and medications. Given fair prep complete visualization of the mucosa could not be achieved healed with copious lavage and suctioning recommendation is for repeat colonoscopy in one year with 2 day prep.
[2019-04-27 11:05] VITALS: BP 126/76; PULSE 68
== END 2019-04-27 11:06 | disposition home or self-care (01) ==
LOC: ORWHC2ENDO 08:28
PROVIDERS: ATTEND Internal Medicine
DX: K57.30 Diverticulosis of large intestine without perforation or abscess without bleeding (principal); Z86.010 Personal history of colon polyps; E78.5 Hyperlipidemia, unspecified; F32.9 Major depressive disorder, single episode, unspecified; Z91.011 Allergy to milk products; Z91.048 Other nonmedicinal substance allergy status; Z91.018 Allergy to other foods; Z79.899 Other long term (current) drug therapy; Z79.02 Long term (current) use of antithrombotics/antiplatelets; Z90.49 Acquired absence of other specified parts of digestive tract; Z98.890 Other specified postprocedural states; Z98.49 Cataract extraction status, unspecified eye; Z90.89 Acquired absence of other organs; Z86.73 Personal history of transient ischemic attack (TIA), and cerebral infarction without residual deficits; Z96.653 Presence of artificial knee joint, bilateral
CPT/HCPCS: 45378; J2704

== ENCOUNTER → 2019-05-20 | Outpatient (CLI) | payer MEDICARE, OTHER ==
--- NOTE | 2019-05-24 09:24 | MM ---
Reason for exam: screening (asymptomatic). Last mammogram was performed 1 year and 1 month ago. History: Patient is postmenopausal. Excisional biopsy of the left breast, 1996. Took hormonal contraceptives for 10 years. Physical Findings: A clinical breast exam by your physician is recommended on an annual basis and results should be correlated with mammographic findings. MG 3D Screening Mammo W/Cad Bilateral CC and MLO view(s) were taken. Prior study comparison: April 29, 2018, bilateral MG 3d diag mammo w/cad CHELSIE. April 09, 2017, bilateral MG 3d diag mammo w/cad CHELSIE. The breast tissue is heterogeneously dense. This may lower the sensitivity of mammography. There is chronic nodularity in the left breast. Benign fat necrosis and oil cyst calcifications. No significant changes when compared with prior studies. ASSESSMENT: Benign, BI-RAD 2 RECOMMENDATION: Routine screening mammogram of both breasts in 1 year.
== END | disposition home or self-care (01) ==
LOC: RADMAMWWP 14:05
PROVIDERS: ATTEND Family Medicine
DX: Z12.31 Encounter for screening mammogram for malignant neoplasm of breast (principal)
CPT/HCPCS: 77063; 77067